=== PATIENT | female | born 1970 | race Caucasian/White ===

== ENCOUNTER 2017-03-24 17:18 | Emergency (ER) | payer MEDICAID ==
[~2017-03-24] VITALS: Ht 162.6 cm; Wt 65.8 kg
--- NOTE | 2017-03-24 17:16 | Emergency Room Report ---
History of Present Illness General Chief Complaint: Syncope Source: Patient, EMS Present Illness HPI Patient is a 47-year-old female who presented after having increased headache and neck pain after syncopal episode. The patient reported feeling somewhat lightheaded earlier in the day. Patient recently been sick with upper respiratory symptoms over the past 2 weeks. Per EMS patient stated that she felt hot after eating an edible. Patient had no prior recent seizures. The patient had prior history of seizure disorder when she was a child. She had history of hypothyroid Allergies: Coded Allergies: SULFA (SULFONAMIDE ANTIBIOTICS) (Unverified Allergy, Unknown, 03/24/17) Uncoded Allergies: SULFA (Allergy, Unknown, 03/24/17) Patient History Past Medical History: see triage record Last Menstrual Period: Two years ago "Early menopause" Now: No Reviewed Nursing Documentation: PMH: Agreed, PSxH: Agreed Nursing Documentation-PMH Hx Diabetes: No - hypothyroid Hx Seizures: Yes Review of Systems All Other Systems: negative except mentioned in HPI Physical Exam Vital Signs Date Time Temp Pulse Resp B/P Pulse Ox O2 Delivery O2 Flow Rate FiO2 03/24/17 17:07 97.5 63 16 130/86 98 Room Air Sp02 EP Interpretation: reviewed, normal General Appearance: alert, GCS 15 Head: other - 5 cm hematoma to right side occipital scalp ENT: hearing grossly normal, no angioedema Neck: supple, thyroid normal, limited range of motion, tender lateral Respiratory: lungs clear, normal breath sounds Cardiovascular #1: normal peripheral pulses, regular rate, rhythm, no edema Gastrointestinal: normal inspection, non tender, soft Musculoskeletal: normal inspection, digits/nails normal, normal range of motion Neurologic: normal inspection, alert, oriented x3, responsive, scale installer III-XII nml as tested Medical Decision Making Diagnostic Impression: Primary Impression: Syncope Additional Impressions: Meningioma Head contusion ER Course Patient presented for syncope. Differential diagnosis included but not limited to syncope versus seizure. Potential causes for syncope included arrhythmia, dehydration, acute coronary syndrome, severe anemia, pulmonary embolus.Patient was offered admission and she declined. CT the head read by radiology showed a left frontal meningioma which was small as well as soft tissue swelling from a contusion. Because of complexity of patient's case laboratory testing and imaging studies were ordered.D-dimer was noted to be negative. Troponin and other blood tests were unremarkable. The patient was noted to have a minimally elevated white blood count The patient started on IV fluids The patient is advised to follow up with primary care doctor in 1-2 days. Patient is advised to return if any worsening condition or if any changes in status that are concerning. Labs Test 03/24/17 18:25 White Blood Count 11.9 K/UL (4.8-10.8) Red Blood Count 4.66 M/UL (4.20-5.40) Hemoglobin 15.6 G/DL (12.0-16.0) Hematocrit 44.3 % (37.0-47.0) Mean Corpuscular Volume 95 FL (80-99) Mean Corpuscular Hemoglobin 33.4 PG (27.0-31.0) Mean Corpuscular Hemoglobin Concent 35.1 G/DL (32.0-36.0) Red Cell Distribution Width 11.6 % (11.6-14.8) Platelet Count 286 K/UL (150-450) Mean Platelet Volume 6.5 FL (6.5-10.1) Neutrophils (%) (Auto) % (45.0-75.0) Lymphocytes (%) (Auto) % (20.0-45.0) Monocytes (%) (Auto) % (1.0-10.0) Eosinophils (%) (Auto) % (0.0-3.0) Basophils (%) (Auto) % (0.0-2.0) Differential Total Cells Counted 100 Neutrophils % (Manual) 86 % (45-75) Lymphocytes % (Manual) 10 % (20-45) Monocytes % (Manual) 3 % (1-10) Eosinophils % (Manual) 0 % (0-3) Basophils % (Manual) 1 % (0-2) Band Neutrophils 0 % (0-8) Platelet Estimate Adequate Platelet Morphology Normal Red Blood Cell Morphology Normal Prothrombin Time 10.2 SEC (9.30-11.50) Prothromb Time International Ratio 1.0 (0.9-1.1) Activated Partial Thromboplast Time 23 SEC (23-33) D-Dimer 314 ng/mL (<500) Sodium Level 142 mEQ/L (135-145) Potassium Level 4.1 mEQ/L (3.4-4.9) Chloride Level 99 mEQ/L (98-107) Carbon Dioxide Level 27 mEQ/L (20-30) Anion Gap 16 (5-15) Blood Urea Nitrogen 15 mg/dL (7-23) Creatinine 0.8 mg/dL (0.5-0.9) Estimat Glomerular Filtration Rate > 60 mL/min (>60) Glucose Level 93 mg/dL (74-106) Calcium Level 8.9 mg/dL (8.6-10.2) Total Bilirubin 0.4 mg/dL (0.0-1.2) Aspartate Amino Transf (AST/SGOT) 13 U/L (5-40) Alanine Aminotransferase (ALT/SGPT) 10 U/L (3-33) Alkaline Phosphatase 66 U/L (35-104) Total Creatine Kinase 39 U/L (26-140) Creatine Kinase MB < 1.5 ng/mL (< 3.8) Creatine Kinase MB Relative Index 3.8 Troponin I < 0.30 ng/mL (<=0.30) Total Protein 6.8 g/dL (6.6-8.7) Albumin 4.4 g/dL (3.5-5.2) Globulin 2.4 g/dL Albumin/Globulin Ratio 1.8 (1.0-2.7) Human Chorionic Gonadotropin, Qual Negative EKG Diagnostic Results Rate: normal Rhythm: NSR ST Segments: no acute changes ASA given to the pt in ED: No Rhythm Strip Diag. Results EP Interpretation: yes Rhythm: NSR, no PVC's, no ectopy Last Vital Signs Date Time Temp Pulse Resp B/P Pulse Ox O2 Delivery O2 Flow Rate FiO2 03/24/17 17:07 97.5 63 16 130/86 98 Room Air Status: improved Disposition: HOME, SELF-CARE Condition: Stable Scripts Cyclobenzaprine Hcl* (FLEXERIL*) 10 Mg Tablet 10 MG ORAL TID Y for Muscle Spasm, #10 TAB Prov: Nigel Alvarado 03/24/17 Hydrocodone Bit/Acetaminophen 5-325* (NORCO 5-325*) 1 Each Tablet 1 TAB ORAL Q6H Y for For Pain, #10 TAB 0 Refills Prov: Nigel Alvarado 03/24/17 Nigel Alvarado Mar 24, 2017 17:16
[2017-03-24 17:17] VITALS: BP 130/86
[~2017-03-24 17:18] MED LIST: LEVOTHYROXINE75 MCG ORAL
[2017-03-24 18:39] LABS: MEAN CORPUSCULAR HEMOGLOBIN 33.4 PG (27.0-31.0); MEAN CORPUSCULAR HGB CONC 35.1 G/DL (32.0-36.0); MEAN CORPUSCULAR VOLUME 95 FL (80-99); MEAN PLATELET VOLUME 6.5 FL (6.5-10.1); PLATELET COUNT 286 K/UL (150-450); RED BLOOD COUNT 4.66 M/UL (4.20-5.40); RED CELL DISTRIBUTION WIDTH 11.6 % (11.6-14.8); WHITE BLOOD COUNT 11.9 K/UL (4.8-10.8)
[2017-03-24 18:48] LABS: PROTHROMBIN TIME 10.2 SEC (9.30-11.50)
[2017-03-24 18:50] LABS: NEUTROPHILS % (MANUAL) 86 % (45-75); TOTAL CELLS COUNTED 100
[2017-03-24 18:51] LABS: BAND NEUTROPHILS % (MANUAL) 0 % (0-8); BASOPHILS % (MANUAL) 1 % (0-2); EOSINOPHILS % (MANUAL) 0 % (0-3); LYMPHOCYTES % (MANUAL) 10 % (20-45); PLATELET ESTIMATE ADEQUATE; PLATELET MORPHOLOGY NORMAL
[2017-03-24 18:56] LABS: TROPONIN I < 0.30 ng/mL (<=0.30)
[2017-03-24 18:59] LABS: ALANINE AMINOTRANSFERASE 10 U/L (3-33); ALBUMIN/GLOBULIN RATIO 1.8 (1.0-2.7); ANION GAP 16 (5-15); ASPARTATE AMINO TRANSFERASE 13 U/L (5-40); CALCIUM 8.9 mg/dL (8.6-10.2); CARBON DIOXIDE 27 mEQ/L (20-30); CHLORIDE 99 mEQ/L (98-107); CREATININE 0.8 mg/dL (0.5-0.9); GLOMERULAR FILTRATION RATE > 60 mL/min (>60); HEMOLYSIS 9; POTASSIUM 4.1 mEQ/L (3.4-4.9); SODIUM 142 mEQ/L (135-145); TOTAL PROTEIN 6.8 g/dL (6.6-8.7)
[2017-03-24 19:09] LABS: CKMB < 1.5 ng/mL (< 3.8)
[2017-03-24 19:30] VITALS: BP 111/77
[2017-03-24] MEDS ORDERED: Ketorolac 30mg Inj IV ONE (20:15)
[2017-03-24 21:00] VITALS: BP 99/68
[2017-03-24] MEDS ORDERED: NORCO 5-325 TA1 EACH ORAL (21:34)
[2017-03-24] MEDS ORDERED: CYCLOBENZAPRINE10 MG ORAL (21:34)
[2017-03-24 22:59] VITALS: BP 105/69
--- NOTE | 2017-03-25 09:45 | Diagnostic Imaging Report ---
Indications: Trauma, headache Technique: Spiral acquisitions obtained through the brain. Angled axial and coronal 5 x 5 mm slices were reconstructed. Total dose length product 1541 mGycm. CTDI vol(s) 70 mGy. Dose reduction achieved using automated exposure control Comparison: None Findings: No acute hemorrhage or edema. No mass effect or midline shift. There is a right high parietal scalp hematoma noted. Visualized orbits are unremarkable. Included sinuses are unremarkable. There is a small ossific density adjacent to the left frontal lobe and inner table of the skull, likely an old ossified meningioma. This does not result in any significant mass effect. 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 Smith The CT scanner at [facility] is accredited by the [employer] and the scans are performed using protocols designed to limit radiation exposure to as low as reasonably achievable to attain images of sufficient resolution adequate for diagnostic evaluation.
--- NOTE | 2017-03-25 11:09 | Diagnostic Imaging Report ---
Indication: SOB Technique: One view of the chest Comparison: none Findings: Lungs and pleural spaces are clear. Heart size is normal. Impression: No acute process
--- NOTE | 2017-03-25 11:10 | Diagnostic Imaging Report ---
Indication: SOB Technique: 3 views of the cervical spine Comparison: none Findings: There is straightening of the normal cervical lordosis. Otherwise normal bony alignment. No prevertebral soft tissue swelling. No acute fractures. No dislocations. There are degenerative changes of the lower cervical spine Impression: No acute bony trauma Degenerative changes
--- NOTE | 2017-03-26 08:19 | Cardiology Report ---
APPROVED REPORT EKG Measurement Heart [id number] Sinus bradycardia Incomplete right bundle branch block Nonspecific T wave abnormality Abnormal ECG
== END 2017-03-24 22:00 | disposition home or self-care (01) ==
LOC: EDBD 17:18 → EMR 17:54 → EDBEDREQ 20:53 → CANBEDREQ 21:54 → EMR 22:00
DX: R55 Syncope and collapse (principal); D32.9 Benign neoplasm of meninges, unspecified; S00.83XA Contusion of other part of head, initial encounter; X58.XXXA Exposure to other specified factors, initial encounter; Y93.9 Activity, unspecified; Y99.9 Unspecified external cause status; Z88.2 Allergy status to sulfonamides; E03.9 Hypothyroidism, unspecified; Z86.69 Personal history of other diseases of the nervous system and sense organs
CPT/HCPCS: 36415; 70450; 71010; 72040; 80053; 82550; 82553; 84484; 84703; 85007; 85025; 85379; 85610; 85730; 93005; 96374; 96375; 99284; J1885; J2405; J7040